=== PATIENT | female | born 1980 | race Caucasian/White ===

== ENCOUNTER 2016-06-12 19:12 | Emergency (ER) | payer MEDICAID ==
[~2016-06-12] VITALS: Ht 172.7 cm; Wt 81.6 kg
[2016-06-12 19:20] VITALS: BP 145/88; PULSE 82; RESP 16; TEMP 98.7; O2SAT 99
--- NOTE | 2016-06-12 19:27 | NUR ---
Placed in room 2 . Placed on supervisor home restoration service, blood pressure machine and pulse oximeter. To gown for exam. Side rails up.
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
--- NOTE | 2016-06-12 21:08 | NUR ---
MD MANTILLA AT BEDSIDE EXAMINING PT
--- NOTE | 2016-06-12 21:22 | NUR ---
PT TAKEN OFF ED BY RADIOLOGIST IN AMBULATORY MODE FOR CT
[2016-06-12] MEDS ORDERED: IBUPROFEN 800 MG TABLET PO ONE (21:30)
[2016-06-12 22:08] VITALS: BP 128/72; PULSE 82; RESP 16; TEMP 98.3; O2SAT 98
--- NOTE | 2016-06-12 22:08 | NUR ---
Patient given written and verbal discharge instructions and verbalizes understanding. ER MD Allen discussed with patient the results and treatment provided. Patient in stable condition. ID arm band removed. Rx of motrin given. Patient educated on pain management and to follow up with PMD. Pain Scale 0/10. Opportunity for questions provided and answered.
== END 2016-06-12 22:08 | disposition home or self-care (01) ==
LOC: SED 19:12
DX: S06.0X9A Concussion with loss of consciousness of unspecified duration, initial encounter (principal); S16.1XXA Strain of muscle, fascia and tendon at neck level, initial encounter; V89.2XXA Person injured in unspecified motor-vehicle accident, traffic, initial encounter; Y93.89 Activity, other specified; Y92.89 Other specified places as the place of occurrence of the external cause; Y99.8 Other external cause status
CPT/HCPCS: 70450-TC; 72125-TC; 81025; 99284